=== PATIENT | female | born 2005 | race Caucasian/White ===

== ENCOUNTER 2023-10-26 05:43 | Emergency (ER) | payer MEDICAID ==
[~2023-10-26] VITALS: Ht 154.9 cm; Wt 63.5 kg
[2023-10-26 06:03] VITALS: BP_SYST 118; PULSE 68; RESP 18; TEMP 98.1; O2SAT 100
[2023-10-26] MEDS ORDERED: KETOROLAC TROMETHAMINE 60 MG/2 ML VIAL IM ONE (06:15)
[2023-10-26] MEDS ORDERED: PROCHLORPERAZINE EDISYLATE 10 MG/2 ML VIAL IM ONE (06:15)
[2023-10-26] MEDS ORDERED: PROC10TA29 PO (06:41)
[2023-10-26] MEDS ORDERED: IBUP-1969 PO (06:41)
[2023-10-26 07:07] VITALS: BP_SYST 109; PULSE 64; RESP 16; TEMP 97; O2SAT 100
== END 2023-10-26 07:00 | disposition home or self-care (01) ==
LOC: SED 05:43
DX: G43.909 Migraine, unspecified, not intractable, without status migrainosus (principal); R11.2 Nausea with vomiting, unspecified; Z79.899 Other long term (current) drug therapy
CPT/HCPCS: 99284; 81025; 96372; J1885; J0780